=== PATIENT | male | born 1990 | race Caucasian/White ===

== ENCOUNTER 2019-01-13 12:59 | Emergency (ER) | payer MEDICAID ==
[2019-01-13 13:12] VITALS: BP 127/76
--- NOTE | 2019-01-13 13:30 | ED Physician Documentation ---
History of Present Illness - Stated complaint Stated Complaint: FLU LIKE SX - Chief complaint Chief Complaint: General - History obtained from History obtained from: Patient - History of Present Illness Timing: Yesterday (Sick since yesterday with cough, runny nose, body aches, fevers and chills.) Review of Systems Constitutional: reports: Fever, Chills, Myalgias, Fatigue Ears: denies: Ear pain Nose: reports: Rhinorrhea / runny nose Throat: reports: Sore throat Respiratory: reports: Cough. denies: Dyspnea GI: denies: Abdominal Pain, Vomiting, Diarrhea PD PAST MEDICAL HISTORY - Past Medical History Past Medical History: No - Present Medications Home Medications: Ambulatory Orders Medication Instructions Recorded Confirmed No Known Home Medications 01/13/19 01/13/19 - Allergies Allergies/Adverse Reactions: Allergies Allergy/AdvReac Type Severity Reaction Status Date / Time No Known Drug Allergies Allergy Verified 01/13/19 13:12 - Social History Does the pt smoke?: No Smoking Status: Never smoker PD ED PE NORMAL - Vitals Vital signs reviewed: Yes - General General: Alert and oriented X 3, No acute distress - HEENT HEENT: PERRL, Ears normal, Pharynx benign (No tonsils) - Neck Neck: Supple, no meningeal sign, No bony TTP - Cardiac Cardiac: RRR, No murmur - Respiratory Respiratory: No respiratory distress, Clear bilaterally - Abdomen Abdomen: Non tender - Neuro Neuro: Alert and oriented X 3, Normal speech Results - Vitals Vitals: Vital Signs - 24 hr 01/13/19 13:10 Temperature 37.1 C Heart Rate 101 H Respiratory 18 Rate Blood Pressure 127/76 O2 Saturation 98 Oxygen O2 Source Room air - Labs Labs: Laboratory Tests 01/13/19 13:10 Influenza A (Rapid) Negative Influenza B (Rapid) Negative PD MEDICAL DECISION MAKING - ED course ED course: This is a 28-year-old healthy gentleman with flulike illness. We discussed the pros and cons of antiviral treatment and he declined after discussion. Departure - Departure Disposition: 01 Home, Self Care Clinical Impression: Influenza Condition: Good Record reviewed to determine appropriate education?: Yes Instructions: ED Flu Comments: Plenty of fluids. Take Tylenol or ibuprofen as needed for pains or fevers. Wash her hands well. Return if worse or new symptoms develop. Discharge Date/Time: 01/13/19 13:32
== END 2019-01-13 13:32 | disposition home or self-care (01) ==
LOC: ED 12:59
DX: J11.1 Influenza due to unidentified influenza virus with other respiratory manifestations (principal)
CPT/HCPCS: 87275; 87276; 99282; 99283

== ENCOUNTER 2019-01-16 11:13 | Emergency (ER) | payer MEDICAID ==
[2019-01-16] MEDS ORDERED: DEXAMETHASONE 10 MG/ML VIAL PO STA (12:47)
--- NOTE | 2019-01-16 12:50 | ED Physician Documentation ---
PD HPI URI - Stated complaint Stated Complaint: FLU LIKE SX/CP - Chief complaint Chief Complaint: Cardiac - History obtained from History obtained from: Patient, Family - History of Present Illness Timing - onset: How many days ago (5) Timing duration: Days (5) Timing details: Abrupt onset, Still present Associated symptoms: Fever, Chills, Nasal congestion, Rhinorrhea, Productive cough, Chest pain, Dyspnea Contributing factors: Sick contact Improves by: Rest, Medication Worsened by: Activity Similar symptoms before: Diagnosis (influenza) Recently seen: Emergency Dept - Additional information Additional information: 28-year-old male who has had a fever cough and congestion for the past 5 days has influenza which was diagnosed 3 days ago here in the emergency department. He has been taking Tylenol and fluids and today he has chest pain on the left side especially worse with coughing. Review of Systems Constitutional: reports: Fever, Chills, Myalgias, Fatigue Eyes: denies: Decreased vision Ears: denies: Ear pain Nose: reports: Congestion. denies: Rhinorrhea / runny nose Throat: denies: Sore throat Cardiac: reports: Chest pain / pressure. denies: Palpitations, Pedal edema, Calf pain Respiratory: reports: Dyspnea, Cough GI: denies: Nausea, Vomiting PD PAST MEDICAL HISTORY - Past Medical History Past Medical History: No Cardiovascular: None Respiratory: None Neuro: None Endocrine/Autoimmune: None GI: None : None HEENT: None Psych: None Musculoskeletal: None Derm: None - Past Surgical History Past Surgical History: Yes General: Other Ortho: Rotator cuff repair, Other HEENT: Tonsil/Adenoidectomy - Present Medications Home Medications: Ambulatory Orders Medication Instructions Recorded Confirmed Amox/Clav 875/125 [Augmentin] 1 each PO Q12H #20 tablet 01/16/19 - Allergies Allergies/Adverse Reactions: Allergies Allergy/AdvReac Type Severity Reaction Status Date / Time No Known Drug Allergies Allergy Verified 01/16/19 11:49 - Social History Does the pt smoke?: No Smoking Status: Never smoker Does the pt drink ETOH?: Yes ETOH Use: Liquor Does the pt have substance abuse?: No - Immunizations Immunizations are current?: Yes - POLST Patient has POLST: No PD ED PE NORMAL - Vitals Vital signs reviewed: Yes (hypertensive ) - General General: Alert and oriented X 3, Well developed/nourished, Other (The patient moves slowly and appears miserable ) - HEENT HEENT: Atraumatic, PERRL, EOMI, Other (right TM is inflamed the left is clear. 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, No motor deficit, No sensory deficit, Normal speech Eye Opening: Spontaneous Motor: Obeys Commands Verbal: Oriented GCS Score: 15 - Psych Psych: Normal mood, Normal affect Results - Vitals Vitals: Vital Signs - 24 hr 01/16/19 11:44 Temperature 36.2 C L Heart Rate 100 Respiratory 16 Rate Blood Pressure 111/84 H O2 Saturation 100 Oxygen O2 Source Room air - Rads (name of study) chest 2 veiw Radiology: Prelim report reviewed (Impression: No acute cardiopulmonary abnormality.), EMP read indepedently, See rad report PD MEDICAL DECISION MAKING - ED course Complexity details: reviewed old records, reviewed results, re-evaluated patient, considered differential, d/w patient, d/w family ED course: 28-year-old male with acute cough congestion and fever has chest pain with his cough and he has persistence of fever. He is bringing up green phlegm. He does have otitis on examination. His chest x-ray is without obvious infiltrate. He is administered DEXAmethasone 10 mg orally and we will place him on some Augmentin. Departure - Departure Disposition: 01 Home, Self Care Clinical Impression: Otitis media Qualifiers: Otitis media type: suppurative Chronicity: acute Laterality: right Recurrence: not specified as recurrent Spontaneous tympanic membrane rupture: without spontaneous rupture Qualified Code(s): H66.001 - Acute suppurative otitis media without spontaneous rupture of ear drum, right ear Condition: Stable Instructions: ED Otitis Media Acute Adult Follow-Up: [facility] [Provider Group] Prescriptions: Amox/Clav 875/125 [Augmentin] 1 each PO Q12H #20 tablet Forms: Activity restrictions
--- NOTE | 2019-01-16 13:38 | XRAY Report ---
Reason: cough fever left sided chest pain Procedure Date: 01/16/2019 Accession Number: [id number] / [id number] Procedure: XR - Chest 2 View X-Ray CPT Code: 29984 FULL RESULT: EXAM: CHEST RADIOGRAPHY EXAM DATE: 01/16/2019 01:15 PM. CLINICAL HISTORY: Cough, fever, left-sided chest pain. COMPARISON: None. TECHNIQUE: 2 views. FINDINGS: Lungs/Pleura: No focal opacities evident. No pleural effusion. No pneumothorax. Normal volumes. Mediastinum: Heart and mediastinal contours are unremarkable. Other: None. IMPRESSION: No acute cardiopulmonary abnormality. RADIA
[2019-01-16 14:27] VITALS: BP 107/65
== END 2019-01-16 14:28 | disposition home or self-care (01) ==
LOC: ED 11:13
DX: H66.001 Acute suppurative otitis media without spontaneous rupture of ear drum, right ear (principal); R05 Cough; R07.9 Chest pain, unspecified; R09.81 Nasal congestion
CPT/HCPCS: 71046; 93005; 99283

== ENCOUNTER 2020-08-19 15:04 | Emergency (ER) | payer MEDICAID ==
[2020-08-19] MEDS ORDERED: DEXAMETHASONE 10 MG/ML VIAL PO STA (16:22)
[2020-08-19] MEDS ORDERED: CHERRY SYRUP 10 ML UDC PO ONE (16:22)
[2020-08-19] MEDS ORDERED: KETOROLAC 60 MG/2 ML VIAL IM STA (16:23)
--- NOTE | 2020-08-19 16:30 | ED Physician Documentation ---
PD HPI UPPER EXT INJURY - Stated complaint Stated Complaint: RT SHOULDER PX - Chief complaint Chief Complaint: Ext Problem - History obtained from History obtained from: Patient - History of Present Illness Location: Right, Shoulder Type of injury: Other (normal use) Where injury occurred: Home Timing - onset: How many weeks ago (2) Timing - duration: Weeks (2) Timing - details: Gradual onset, Still present Improved by: Rest, Immobilization Worsened by: Moving, Palpating Associated symptoms: No: Weakness, Numbness, Tingling, Swelling Contributing factors: No: Anticoagulated Similar symptoms before: Diagnosis (labrum tear) Recently seen: Not recently seen - Additonal information Additional information: 30-year-old male with a prior injury to his right shoulder that resulted in a repair to his labrum has had pain on and off since this repair done 6 years ago. He is never regained full range of motion. 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 He does not recall any specific injury to the area but notes that over the past 2 weeks pain has been increasing and last night he rolled over in bed pain became excruciating and he has not been able to be comfortable since. He is able to move his arm in a fair range of motion has some clicking and popping and at extremes of motion he is not able to complete. Review of Systems Constitutional: denies: Fever Eyes: denies: Decreased vision Ears: denies: Ear pain Nose: denies: Congestion Throat: denies: Sore throat Respiratory: denies: Cough GI: denies: Vomiting, Diarrhea PD PAST MEDICAL HISTORY - Past Medical History Cardiovascular: None Respiratory: None Neuro: None Endocrine/Autoimmune: None GI: None : None HEENT: None Psych: None Musculoskeletal: None Derm: None - Past Surgical History Past Surgical History: Yes General: Other Ortho: Rotator cuff repair, Other HEENT: Tonsil/Adenoidectomy - Present Medications Home Medications: Ambulatory Orders Medication Instructions Recorded Confirmed Bacitracin Zinc Oint 1 applic TOP BID #1 tube 06/01/20 Cephalexin [Keflex] 500 mg PO Q6H #28 capsule 06/01/20 Hydrocodone/Acetaminophen 1 - 2 tab PO Q6H PRN #15 tablet 06/01/20 [Hydrocodone-Acetamin 5-325 mg] Hydrocodone/Acetaminophen 1 - 2 each PO Q6H PRN #14 tablet 08/19/20 [Hydrocodone-Acetamin 5-325 mg] - Allergies Allergies/Adverse Reactions: Allergies Allergy/AdvReac Type Severity Reaction Status Date / Time No Known Drug Allergies Allergy Verified 08/19/20 15:24 - Social History Does the pt smoke?: No Smoking Status: Never smoker Does the pt drink ETOH?: Yes Does the pt have substance abuse?: No - Immunizations Immunizations are current?: Yes - POLST Patient has POLST: No PD ED PE NORMAL - Vitals Vital signs reviewed: Yes (hypertensive ) - General General: Alert and oriented X 3, No acute distress, Well developed/nourished - HEENT HEENT: Atraumatic, PERRL, EOMI - Respiratory Respiratory: No respiratory distress - Derm Derm: Normal color, Warm and dry, No rash - Extremities Extremities: No deformity, No edema, Other (tenderness to the anterior deltoid with fair ROM. Able to hold arm in abduction. 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 Acromioclavicular and glenohumeral joint osteoarthritis. No acute fracture. No osseous lesion. If symptoms and or clinical suspicion for pathology continue, further assessment with repeat plain films, or advanced imaging is recommended for further assessment.), EMP read indepedently, See rad report PD MEDICAL DECISION MAKING - ED course Complexity details: reviewed results, re-evaluated patient, considered differential, d/w patient, d/w family ED course: 30-year-old male with a prior right shoulder injury has had persistence of symptoms over the past year and now has intolerable symptoms and comes to the emergency department uncomfortable with any movement of his shoulder. He is treated here in the emergency department with Toradol 60 mg IM and dexamethasone 10 mg orally he has improvement in his pain will provide a short course of narcotic pain reliever. Departure - Departure Disposition: 01 Home, Self Care Clinical Impression: Right anterior shoulder pain Condition: Stable Instructions: Shoulder Probs, ED Shoulder Pain [facility] Follow-Up: Ian Lyons MD [Provider Admit Priv/Credential] - Prescriptions: Hydrocodone/Acetaminophen [Hydrocodone-Acetamin 5-325 mg] 1 - 2 each PO Q6H PRN #14 tablet PRN Reason: Pain
--- NOTE | 2020-08-19 17:01 | XRAY Report ---
PROCEDURE: Shoulder 3 View RT INDICATIONS: increased pain TECHNIQUE: 3 views of the shoulder were acquired. COMPARISON: None. FINDINGS: Bones: No fractures or dislocations. No suspicious bony lesions. Visualized ribs appear intact. M ild periarticular osteophyte formation at the acromial clavicular and glenohumeral joints. Subchondra l lucency and sclerosis within the humeral head which appears degenerative. Soft tissues: No suspicious soft tissue calcifications. IMPRESSION: 1. Acromial clavicular and glenohumeral joint osteoarthritis. 2. No acute fracture. No osseous lesion. If symptoms and/or clinical suspicion for pathology continue , further assessment with repeat plain films, or advanced imaging (e.g., CT, MRI, or bone scan) is re commended for further assessment. Reviewed by: Jarrell Cobos MD on 08/19/2020 5:00 PM PDT Approved by: Jarrell Cobos MD on 08/19/2020 5:00 PM PDT Station ID: [id number]
[2020-08-19 18:12] VITALS: BP 136/74
== END 2020-08-19 18:12 | disposition home or self-care (01) ==
LOC: ED 15:04
DX: M19.011 Primary osteoarthritis, right shoulder (principal); Z87.828 Personal history of other (healed) physical injury and trauma
CPT/HCPCS: 73030; 96372; 99283; 99284; A9270

== ENCOUNTER 2021-02-09 10:27 | Emergency (ER) | payer MEDICAID ==
[2021-02-09] MEDS ORDERED: CYCLOBENZAPRINE 10 MG TABLET PO STA (11:46)
[2021-02-09] MEDS ORDERED: HYDROmorphone 1 MG/ML CARPUJECT IM STA (11:46)
--- NOTE | 2021-02-09 11:49 | ED Physician Documentation ---
History of Present Illness - Stated complaint Stated Complaint: BACK PX - Chief complaint Chief Complaint: Back Pain - History obtained from History obtained from: Patient - Additonal information Additional information: Patient comes emergency department chief complaint of back pain and spasm which started after picking his [id number] up yesterday. He states that he felt a sudden twinge in his right mid back and a tight pain. Patient states that it has gotten worse overnight and feels like it is all up and down inside of his back. Patient denies any loss of bowel or bladder control. No numbness or tingling in his lower extremities. No weakness. Patient has a longstanding history of "back problems" and states that this kind of thing is happened to him before. He has mostly had work-up through the , which has Consisted mostly of x-rays and symptomatic treatment. He has never had MRI. No distinct injury otherwise. No other complaints at this time. Patient states that his current employment is with [employer] in [place], and involves sitting on a stool, working at the computer most of the day. Review of Systems Ten Systems: 10 systems reviewed and negative Constitutional: reports: Reviewed and negative Eyes: reports: Reviewed and negative Ears: reports: Reviewed and negative Nose: reports: Reviewed and negative Throat: reports: Reviewed and negative Cardiac: reports: Reviewed and negative Respiratory: reports: Reviewed and negative GI: reports: Reviewed and negative : reports: Reviewed and negative Skin: reports: Reviewed and negative Musculoskeletal: reports: Back pain Neurologic: reports: Reviewed and negative Psychiatric: reports: Reviewed and negative Endocrine: reports: Reviewed and negative Immunocompromised: reports: Reviewed and negative PD PAST MEDICAL HISTORY - Past Medical History Past Medical History: Yes Cardiovascular: None Respiratory: None Neuro: None Endocrine/Autoimmune: None GI: None : None HEENT: None Psych: None Musculoskeletal: Chronic back pain Derm: None - Past Surgical History Past Surgical History: Yes General: Other Ortho: Rotator cuff repair, Other HEENT: Tonsil/Adenoidectomy - Present Medications Home Medications: Ambulatory Orders Medication Instructions Recorded Confirmed Cyclobenzaprine [Flexeril] 10 mg PO TID PRN #20 tablet 02/09/21 traMADol [Ultram] 100 mg PO Q6H PRN #20 tablet 02/09/21 - Allergies Allergies/Adverse Reactions: Allergies Allergy/AdvReac Type Severity Reaction Status Date / Time No Known Drug Allergies Allergy Verified 02/09/21 10:32 - Social History Does the pt smoke?: No Smoking Status: Former smoker Does the pt drink ETOH?: Yes Does the pt have substance abuse?: No - Immunizations Immunizations are current?: Yes - POLST Patient has POLST: No PD ED PE NORMAL - Vitals Vital signs reviewed: Yes - General General: Alert and oriented X 3, No acute distress - HEENT HEENT: Atraumatic, PERRL, EOMI, Moist mucous membranes - Neck Neck: Supple, no meningeal sign - Respiratory Respiratory: No respiratory distress - Back Back: No spinal TTP (no deformity), Other (Muscular tenderness over the right back in the L1-2 area.) - Derm Derm: Normal color, Warm and dry, No rash - Extremities Extremities: No deformity, Other - Neuro Neuro: Alert and oriented X 3, 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 He was advised to follow-up in primary care to discuss getting an MRI done. I have given him prescriptions for tramadol, which he states is worked somewhat for him before, as well as Flexeril. We have discussed the usual indications for return. Departure - Departure Disposition: 01 Home, Self Care Clinical Impression: Back spasm Condition: Stable Instructions: ED Low Back Pain Injury Prescriptions: Cyclobenzaprine [Flexeril] 10 mg PO TID PRN #20 tablet PRN Reason: Spasms traMADol [Ultram] 100 mg PO Q6H PRN #20 tablet PRN Reason: Pain Discharge Date/Time: 02/09/21 12:14
[2021-02-09 12:10] VITALS: BP 121/86
== END 2021-02-09 12:14 | disposition home or self-care (01) ==
LOC: ED 10:27
DX: M62.830 Muscle spasm of back (principal); G89.29 Other chronic pain; M54.9 Dorsalgia, unspecified; Z87.891 Personal history of nicotine dependence
CPT/HCPCS: 96372; 99283; 99284; A9270; J1170

== ENCOUNTER 2021-07-09 19:32 | Emergency (ER) | payer MEDICAID, OTHER ==
[2021-07-09 19:48] VITALS: BP 143/85
--- NOTE | 2021-07-09 20:37 | XRAY Report ---
PROCEDURE: Shoulder 3 View RT INDICATIONS: injury/playing baseball; c/o pain w/ some deformit TECHNIQUE: 3 views of the shoulder were acquired. COMPARISON: None. FINDINGS: Bones: No fractures or dislocations. No suspicious bony lesions. Visualized ribs appear intact. Soft tissues: No suspicious soft tissue calcifications. IMPRESSION: No visible shoulder fracture, dislocation, or separation. Reviewed by: Kayla Roach MD on 07/09/2021 8:35 PM PDT Approved by: Kayla Roach MD on 07/09/2021 8:35 PM PDT Station ID: [id number]
[2021-07-09] MEDS ORDERED: CYCLOBENZAPRINE 10 MG Prepack 2 PO PRN (20:55)
--- NOTE | 2021-07-09 20:58 | ED Physician Documentation ---
PD HPI UPPER EXT INJURY - Stated complaint Stated Complaint: RT SHOULDER INJ - Chief complaint Chief Complaint: Trauma Ext - History obtained from History obtained from: Patient - Additonal information Additional information: Patient comes to the emergency department for chief complaint of right shoulder pain after throwing a baseball. He states that he was actually following through on the throw when he suddenly felt a pop in the lancinating pain across the front of his anterior aspect of his shoulder. Patient states that he could not move it because of the pain and that now he can feel pain radiating down his upper arm and a dull ache in his hand. Patient has a history of rotator cuff injury and had an arthroscopy and labral repair done some years back. He is right-hand dominant and works for [employer]. Patient states the injury happened in the late afternoon. No other complaints at this time. Review of Systems Ten Systems: 10 systems reviewed and negative Constitutional: reports: Reviewed and negative Eyes: reports: Reviewed and negative Ears: reports: Reviewed and negative Nose: reports: Reviewed and negative Throat: reports: Reviewed and negative Cardiac: reports: Reviewed and negative Respiratory: reports: Reviewed and negative GI: reports: Reviewed and negative : reports: Reviewed and negative Skin: reports: Reviewed and negative Musculoskeletal: reports: Extremity pain, Joint pain Neurologic: reports: Reviewed and negative Psychiatric: reports: Reviewed and negative Endocrine: reports: Reviewed and negative Immunocompromised: reports: Reviewed and negative PD PAST MEDICAL HISTORY - Past Medical History Cardiovascular: None Respiratory: None Neuro: None Endocrine/Autoimmune: None GI: None : None HEENT: None Psych: None Musculoskeletal: Chronic back pain Derm: None - Past Surgical History Past Surgical History: Yes General: Other Ortho: Rotator cuff repair, Other HEENT: Tonsil/Adenoidectomy - Present Medications Home Medications: Ambulatory Orders Medication Instructions Recorded Confirmed Cyclobenzaprine [Flexeril] 10 mg PO TID PRN #20 tablet 07/09/21 HYDROcod/ACETAM 5/325 [Doyle 5/325] 1 - 2 tablet PO Q6H PRN #14 tablet 07/09/21 - Allergies Allergies/Adverse Reactions: Allergies Allergy/AdvReac Type Severity Reaction Status Date / Time No Known Drug Allergies Allergy Verified 07/09/21 19:46 - Social History Does the pt smoke?: No Smoking Status: Former smoker Does the pt drink ETOH?: Yes Does the pt have substance abuse?: No - Immunizations Immunizations are current?: Yes - POLST Patient has POLST: No PD ED PE NORMAL - Vitals Vital signs reviewed: Yes - General General: Alert and oriented X 3, No acute distress, Well developed/nourished - HEENT HEENT: Atraumatic, PERRL, EOMI, Moist mucous membranes - Neck Neck: Supple, no meningeal sign - Cardiac Cardiac: Strong equal pulses - Respiratory Respiratory: No respiratory distress - Derm Derm: Normal color, Warm and dry, No rash - Extremities Extremities: No deformity, No edema, Other (Tenderness palpation right anterior right shoulder without deformity or obvious edema. Forward flexion is limited to approximately 45 degrees. Abduction to 90 degrees; internal rotation demonstrates patient can get his hand back to his lumbar area. No popping or clicking in shoulder.) - Neuro Neuro: Alert and oriented X 3, No motor deficit, No sensory deficit - Psych Psych: Normal mood, Normal affect Results - Vitals Vitals: Vital Signs - 24 hr 07/09/21 07/09/21 19:40 19:43 Temperature 36.9 C 36.9 C Heart Rate 84 84 Respiratory 16 16 Rate Blood Pressure 143/85 H 143/85 H O2 Saturation 99 99 Oxygen O2 Source Room air - Rads (name of study) R shoulder XR Radiology: Final report received, EMP read indepedently, See rad report (neg) PD MEDICAL DECISION MAKING - ED course Complexity details: reviewed results, re-evaluated patient, considered differential, d/w patient ED course: I discussed with the patient that his x-rays are negative, and this is most likely soft tissue injury. We have discussed symptomatic management at home, including the need for range of motion. We have given the patient a sling from the emergency department. I have advised patient follow-up with orthopedics, since he has a complicated history of his right shoulder. We discussed the usual indications for return. Departure - Departure Disposition: 01 Home, Self Care Clinical Impression: Shoulder sprain Qualifiers: Encounter type: initial encounter Shoulder sprain type: unspecified sprain Laterality: right Qualified Code(s): S43.401A - Unspecified sprain of right shoulder joint, initial encounter Condition: Stable Instructions: ED Sprain Shoulder Follow-Up: Bill Lovell MD [Provider Admit Priv/Credential] - Prescriptions: Cyclobenzaprine [Flexeril] 10 mg PO TID PRN #20 tablet PRN Reason: Spasms HYDROcod/ACETAM 5/325 [Doyle 5/325] 1 - 2 tablet PO Q6H PRN #14 tablet PRN Reason: Pain Comments: Your prescriptions have been electronically transmitted to [facility] pharmacy in [place]. Your x-ray series does not show any fractures or dislocations. Most likely, you have sustained a soft tissue injury, whether of tendon, ligament, or muscle. You most likely have a fair amount of scar tissue in the area, as well, given your previous history of extended injury followed by surgery. Any of these structures could be responsible for the pain you fell today with throwing. Please follow-up with orthopedics. You may use ice and the sling as needed, but please be sure to do range of motion exercises frequently throughout the day, as we discussed. Please call first thing tomorrow to make a follow-up appointment with orthopedics. You may take the pain medication and muscle relaxer as needed. Forms: Activity restrictions Discharge Date/Time: 07/09/21 21:09
== END 2021-07-09 21:09 | disposition home or self-care (01) ==
LOC: ED 19:32
DX: S43.401A Unspecified sprain of right shoulder joint, initial encounter (principal); X58.XXXA Exposure to other specified factors, initial encounter; Y93.64 Activity, baseball; Z87.891 Personal history of nicotine dependence
CPT/HCPCS: 99283